=== PATIENT | female | born 1995 | race Hispanic/Latino ===

== ENCOUNTER 2018-06-05 15:00 | Outpatient (CLI) | payer MEDICAID ==
[2018-06-05] MEDS ORDERED: LACTATED RINGERS 500 ML IV ONE (17:45)
[2018-06-05 17:48] VITALS: BP 118/78
[2018-06-05 18:25] LABS: Bacteria,Urine 1+ /HPF (Negative); Bilirubin,Urine NEG (Negative); Blood,Urine NEG (Negative); Color,Urine Yellow (Yellow); Mucus,Urine 2+ /HPF; Protein,Urine <15 mg/dL mg/dL (Negative); Urobilinogen,Urine < 2.0 mg/dL (<2.0)
== END 2018-06-05 19:23 | disposition home or self-care (01) ==
LOC: TRG 15:00
PROVIDERS: ATTEND Obstetrics & Gynecology
DX: O47.03 False labor before 37 completed weeks of gestation, third trimester (principal); Z3A.35 35 weeks gestation of pregnancy
CPT/HCPCS: 59025; 81001; 96360; J7120

== ENCOUNTER 2018-07-08 13:05 | Outpatient (CLI) | payer MEDICAID | END 2018-07-08 14:30 | disposition home or self-care (01) | LOC: TRG 13:05 | CPT/HCPCS: 59025 ==

== ENCOUNTER 2018-07-11 18:30 | Outpatient (CLI) | payer MEDICAID ==
[2018-07-11 19:28] VITALS: BP 136/80
--- NOTE | 2018-07-11 20:48 | Ultrasound Report ---
PROCEDURE: US OB BPP WO NON-STRESS TECHNIQUE: Sonographic evaluation for breathing, movement, tone, and amniotic flui d volume was performed. HISTORY: NR NST COMPARISONS: None . FINDINGS: FETUS Amniotic fluid volume Normal-score 2. At least one vertical pocket >2 cm or more in vertical axis . breathing: Normal-score 2 . movement: Normal-score 2 . tone: Normal-score 2 . Score: 8 of 8 . heart rate is 135 bpm. IMPRESSION: Normal biophysical profile . This document is electronically signed by Juanita Murdock MD., July 11 2018 08:46:28 PM ET
== END 2018-07-11 19:54 | disposition home or self-care (01) ==
LOC: TRG 18:30
PROVIDERS: ATTEND Obstetrics & Gynecology
DX: O47.1 False labor at or after 37 completed weeks of gestation (principal); Z3A.40 40 weeks gestation of pregnancy
CPT/HCPCS: 59025; 76819

== ENCOUNTER 2018-07-13 16:20 | Inpatient (IN) | payer MEDICAID ==
[2018-07-13] MEDS ORDERED: MINERAL OIL PO PRN (17:26)
[2018-07-13] MEDS ORDERED: SUBLIMAZE IV PRN (17:26)
[2018-07-13] MEDS ORDERED: BRETHINE SUB-Q PRN (17:26)
[2018-07-13] MEDS ORDERED: XYLOCAINE 2% INFILTRATI ONE (17:26)
[2018-07-13] MEDS ORDERED: PITOCin/NS 20 UNIT/1000ML DRIP 20 UNITS/1,000 ML BAG IV SCH (18:00)
[2018-07-13] MEDS ORDERED: CERVIDIL VG ONE (18:00)
--- NOTE | 2018-07-13 19:21 | History and Physical Report ---
History of Present Illness Date of examination: 07/13/18 (3rd trip to Triage today Arrived by EMS with c/o bleeding) History of present illness: EDC Confirmation: 07/06/2018 Gestational Age: 20 3/7 weeks Past History : 2 Term Births: 0 Premature Births: 0 Living Children: 0 Para: 0 Mult. Births: 0 Prev : 0 Aborta: 1 Elect. Ab: 1 Spont. Ab: 0 Ectopics: 0 # 1 Delivery date: 12/2015 Weeks Gestation: 8 Delivery type: EAB Comments: Concieved on Accutane Past Medical History: IBS (2014) Depression Past Surgical History: Left Breast Reduction: (2011) D&C: (2015) Family History Summary: Other family member - Has No Family History of Colon Cancer - Entered On: 02/19/2018 Other family member - Has No Family History of Breast Cancer - Entered On: 02/19/2018 Other family member - Has Family History of Ovarian Cancer - Entered On: 02/19/2018 Other family member - Has Family History of Diabetes - Entered On: 02/19/2018 Other family member - Has Family History of CVA or Stroke - Entered On: 02/19/2018 Social History: Marital Status: engaged Children: 0 Occupation: unemployed Patient is single Risk Factors: Smoked Tobacco Use: Never smoker Drug use: no HIV high-risk behavior: low risk Alcohol use: yes Drinks per day: social Dietary Counseling: pn yes Past Medical History 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 of genital herpes: no Genetic History Congenital Heart Defect: Mom: no Dad: no Sanjeev Disease: Mom: no Dad: no Thalassemia Mom: no Dad: no Neural Tube Defect Mom: no Dad: no Down's Syndrome Mom: no Dad: no Andrea-Sachs Mom: no Dad: no Sickle Cell Disease/Trait Mom: no Dad: no Hemophilia Mom: no Dad: no Muscular Dystrophy Mom: no Dad: no Cystic Fibrosis Mom: no Dad: no [place] Chorea Mom: no Dad: no Mental Retardation Mom: no Dad: no Fragile X Mom: no Dad: no Other Genetic/Chromosomal Disorder Mom: no Dad: no Child w/other defect Mom: no Dad: no Current Allergies (reviewed today): * PNC (Critical) * MOXICILLIN (Critical) Past History - Obstetrical History Expected Date of Delivery: 07/06/18 Actual Gestation: 41 Week(s) 0 Day(s) : 2 Para: 0 Hx # Term Pregnancies: 0 Number of Pregnancies: 0 Spontaneous Abortions: 0 Induced : 1 Number of Living Children: 0 Medications and Allergies Allergies Allergy/AdvReac Type Severity Reaction Status Date / Time Penicillins AdvReac Severe Anaphylaxis Verified 07/08/18 13:18 amoxicillin AdvReac Anaphylaxis Verified 07/08/18 13:19 Home Medications Medication Instructions Recorded Confirmed Last Taken Type Pnv,Calcium 72/Iron/Folic Acid 1 tab PO DAILY 07/08/18 07/13/18 07/12/18 10:00 History [Pnv Plus Multivit Tab] Bupropion HCl [Wellbutrin XL] 300 mg PO DAILY 07/11/18 07/13/18 07/13/18 10:00 History Active Meds: Active Medications Ephedrine Sulfate (Ephedrine Sulfate) 10 mg IV Q2M PRN PRN Reason: Hypotension Fentanyl (Sublimaze) 100 mcg IV Q2H PRN PRN Reason: Labor Pain Lactated Ringer's (Lactated Ringers) 1,000 mls @ 125 mls/hr IV DIRECT IBETH Oxytocin/Sodium Chloride (Pitocin/Ns 20 Unit/1000ml Drip) 20 units in 1,000 mls @ 125 mls/hr IV DIRECT IBETH Mineral Oil (Mineral Oil) 30 ml PO QHS PRN PRN Reason: Constipation Ondansetron HCl (Zofran) 4 mg IV Q8H PRN PRN Reason: Nausea And Vomiting Terbutaline Sulfate (Brethine) 0.25 mg SUB-Q ONCE PRN PRN Reason: Hyperstimulation/Hypertonicity - Vital Signs Vital signs: Vital Signs Pulse BP 76 128/86 07/13/18 16:27 07/13/18 16:27 Temp Pulse Resp BP Pulse Ox 98.9 F 100 H 18 137/82 07/13/18 16:30 07/13/18 19:15 07/13/18 16:30 07/13/18 19:15 - Physical Exam Breasts: Positive: normal Cardiovascular: Regular rate, Normal S1, Normal S2 Lungs: Positive: Clear to auscultation Abdomen: Positive: normal appearance, soft, normal bowel sounds. Negative: distention, tenderness Genitourinary (Female): Positive: normal external genitalia Vulva: both: normal Vagina: Positive: normal moisture. Negative: discharge Cervix: Negative: lesion, discharge Uterus: Positive: normal size, normal contour Adnexa: both: normal Anus/Rectum: Positive: normal perianal skin, heme negative. Negative: rectal mass, hemorrhoids Extremities: Positive: edema Deep Tendon Reflex Grade: Normal +2 - Obstetrical FHR: category 1 Uterine Contraction Monitor Mode: External Cervical Dilatation: 1 (spotting noted on exam glove) Cervical Effacement Percentage: 50 station: -3 Uterine Contraction Pattern: Irregular Uterine Tone Measurement Phase: Resting Uterine Contraction Intensity: Mild Results All other labs normal. GBS Negative Current OB Labs Blood Type: O (11/27/2017) Rh Type: positive (11/27/2017) Rh Antibody Screen: negative (11/27/2017) Hgb: 11.1 (11/27/2017) Hct: 33.3 (11/27/2017) Platelets: 208 (11/27/2017) Rubella: non-immune (11/27/2017) RPR: nonreactive (11/27/2017) Hep B Surface Antigen: negative (11/27/2017) HIV: negative (11/27/2017) Assessment and Plan 23yo @ 41 weeks vaginal spotting Admitted to start IOL which was scheduled for Sunday. GBS negative Orders in EMR.
[2018-07-13] MEDS: LACTATED RINGERS 1,000 ML IV SCH ×3 (20:30→23:06)
[2018-07-13 21:09] LABS: Hematocrit 32.8 % (30.3-42.9); Mean Corpuscular HGB Conc 34 % (30-34); Mean Corpuscular Volume 80 fl (79-97); Platelet Count 204 K/mm3 (140-440); Red Blood Count 4.11 M/mm3 (3.65-5.03)
[2018-07-13 21:45] LABS: Bilirubin,Urine NEG (Negative); Blood,Urine LG (Negative); Color,Urine Yellow (Yellow); Mucus,Urine 3+ /HPF; Urobilinogen,Urine < 2.0 mg/dL (<2.0)
[2018-07-13 21:57] LABS: Amphetamine Screen,Urine PRESUMPTIVE NEGATIVE; Benzodiazepines Screen,Urine PRESUMPTIVE NEGATIVE; Cannabinoid Screen,Urine PRESUMPTIVE NEGATIVE; Cocaine Screen,Urine PRESUMPTIVE NEGATIVE; Methadone Screen,Urine PRESUMPTIVE NEGATIVE; Opiate Screen,Urine PRESUMPTIVE NEGATIVE
[2018-07-13] MEDS ORDERED: NARCAN 2 MG/2 ML IV PRN (21:57)
[2018-07-13] MEDS ORDERED: MARCAINE 0.25% INFILTRATI ONE (22:03)
[2018-07-13] MEDS ORDERED: PITOCin/NS 30 UNIT/500ML 30 UNITS/500 ML BAG IV SCH (23:00)
[2018-07-13] MEDS: fentaNYL-BUPIV 2 MCG/ML-0.125% 200 MCG/100 ML BAG EPIDURAL SCH (23:03)
[2018-07-13] MEDS: ZOFRAN IV PRN (23:24)
--- NOTE | 2018-07-13 23:24 | Anesthesia Consultation ---
Anesthesia Consult and Med Hx - Airway Anesthetic Teeth Evaluation: Good ROM Head & Neck: Adequate Mental/Hyoid Distance: Adequate Mallampati Class: Class I Intubation Access Assessment: Good - Pulmonary Exam CTA: Yes - Cardiac Exam Cardiac Exam: RRR - Pre-Operative Health Status ASA Pre-Surgery Classification: ASA2 Proposed Anesthetic Plan: Epidural - Pulmonary Hx Smoking: No Hx Asthma: No Hx Respiratory Symptoms: No SOB: No COPD: No Home Oxygen Therapy: No Hx Pneumonia: No Hx Sleep Apnea: No - Cardiovascular System Hx Hypertension: No - Central Nervous System Hx Seizures: No Hx Psychiatric Problems: Yes (depression, anxiety) - Endocrine Hx Renal Disease: No Hx End Stage Renal Disease: No Hx Hypothyroidism: No Hx Hyperthyroidism: No - Hematic Hx Anemia: No Hx Sickle Cell Disease: No - Other Systems Hx Alcohol Use: No
--- NOTE | 2018-07-13 23:25 | Anesthesia Day of Surgery ---
Anesthesia Day of Surgery - Day of Surgery Patient Examined: Yes Patient H&P Reviewed: Yes Patient is NPO: Yes Beta Blockers: No Cardiac Clearance: No Pulmonary Clearance: No Kasi's Test: N/A
[2018-07-14] MEDS: fentaNYL-BUPIV 2 MCG/ML-0.125% 200 MCG/100 ML BAG EPIDURAL SCH (06:25)
[2018-07-14] MEDS: LACTATED RINGERS 1,000 ML IV SCH (06:26)
[2018-07-14] MEDS: ZOFRAN IV PRN (06:57)
[2018-07-14] MEDS ORDERED: XYLOCAINE MPF 2% ONE ×4 (08:54→12:30)
[2018-07-14] MEDS ORDERED: PEPCID IV ONE ×3 (09:37→11:00)
--- NOTE | 2018-07-14 10:23 | Progress Note ---
Assessment and Plan Pt comfortable with epidural Pitocin per protocol for IOL Pt and family very aware of possible operative intervention. Discussed risk to include but not limited to: excessive bleeding, damage to other organs, need for c/s with future pregnancies All questions addressed. Subjective - Subjective Date of service: 07/14/18 (Late Entry from 0800) Interval history: EDC Confirmation: 07/06/2018 Gestational Age: 20 3/7 weeks Past History : 2 Term Births: 0 Premature Births: 0 Living Children: 0 Para: 0 Mult. Births: 0 Prev : 0 Aborta: 1 Elect. Ab: 1 Spont. Ab: 0 Ectopics: 0 # 1 Delivery date: 12/2015 Weeks Gestation: 8 Delivery type: EAB Comments: Concieved on Accutane Past Medical History: IBS (2014) Depression Past Surgical History: Left Breast Reduction: (2011) D&C: (2015) Family History Summary: Other family member - Has No Family History of Colon Cancer - Entered On: 02/19/2018 Other family member - Has No Family History of Breast Cancer - Entered On: 02/19/2018 Other family member - Has Family History of Ovarian Cancer - Entered On: 02/19/2018 Other family member - Has Family History of Diabetes - Entered On: 02/19/2018 Other family member - Has Family History of CVA or Stroke - Entered On: 02/19/2018 Social History: Marital Status: engaged Children: 0 Occupation: unemployed Patient is single Risk Factors: Smoked Tobacco Use: Never smoker Drug use: no HIV high-risk behavior: low risk Alcohol use: yes Drinks per day: social Dietary Counseling: pn yes Past Medical History 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 of genital herpes: no Genetic History Congenital Heart Defect: Mom: no Dad: no Sanjeev Disease: Mom: no Dad: no Thalassemia Mom: no Dad: no Neural Tube Defect Mom: no Dad: no Down's Syndrome Mom: no Dad: no Andrea-Sachs Mom: no Dad: no Sickle Cell Disease/Trait Mom: no Dad: no Hemophilia Mom: no Dad: no Muscular Dystrophy Mom: no Dad: no Cystic Fibrosis Mom: no Dad: no [place] Chorea Mom: no Dad: no Mental Retardation Mom: no Dad: no Fragile X Mom: no Dad: no Other Genetic/Chromosomal Disorder Mom: no Dad: no Child w/other defect Mom: no Dad: no Current Allergies (reviewed today): * PNC (Critical) * MOXICILLIN (Critical) Patient reports: movement normal, other (pain and pressure despite epidural) Objective - Vital Signs Vital Signs: Vital Signs - 12hr 07/13/18 07/13/18 07/13/18 22:25 22:27 22:28 Temperature Pulse Rate 91 H 90 94 H Respiratory Rate Blood Pressure 118/66 123/73 O2 Sat by Pulse 100 Oximetry 07/13/18 07/13/18 07/13/18 22:31 22:32 22:34 Temperature Pulse Rate 84 100 H 83 Respiratory Rate Blood Pressure 126/72 128/73 O2 Sat by Pulse 100 Oximetry 07/13/18 07/13/18 07/13/18 22:37 22:40 22:42 Temperature Pulse Rate 90 90 89 Respiratory Rate Blood Pressure 130/70 119/70 O2 Sat by Pulse 99 100 Oximetry 07/13/18 07/13/18 07/13/18 22:43 22:46 22:47 Temperature Pulse Rate 86 90 94 H Respiratory Rate Blood Pressure 118/69 124/71 O2 Sat by Pulse 100 Oximetry 07/13/18 07/13/18 07/13/18 22:49 22:52 22:57 Temperature Pulse Rate 93 H 89 94 H Respiratory Rate Blood Pressure 117/66 116/67 O2 Sat by Pulse 100 100 Oximetry 07/13/18 07/13/18 07/13/18 23:02 23:07 23:08 Temperature Pulse Rate 83 85 83 Respiratory Rate Blood Pressure 117/68 O2 Sat by Pulse 100 100 Oximetry 07/13/18 07/13/18 07/13/18 23:12 23:18 23:23 Temperature Pulse Rate 103 H 87 88 Respiratory Rate Blood Pressure O2 Sat by Pulse 99 100 100 Oximetry 07/13/18 07/13/18 07/13/18 23:25 23:28 23:30 Temperature Pulse Rate 82 75 Respiratory 20 Rate Blood Pressure 115/68 115/68 O2 Sat by Pulse 100 Oximetry 07/13/18 07/13/1819 23:32 23:37 23:38 Temperature Pulse Rate 86 86 89 Respiratory Rate Blood Pressure 113/68 O2 Sat by Pulse 100 100 Oximetry 07/13/18 07/13/18 07/13/18 23:45 23:50 23:52 Temperature Pulse Rate 89 87 92 H Respiratory Rate Blood Pressure 104/59 O2 Sat by Pulse 99 100 Oximetry 07/13/18 07/13/18 07/14/18 23:55 23:59 00:04 Temperature Pulse Rate 84 86 109 H Respiratory Rate Blood Pressure O2 Sat by Pulse 100 100 100 Oximetry 07/14/18 07/14/18 07/14/18 00:08 00:09 00:14 Temperature Pulse Rate 99 H 112 H 82 Respiratory Rate Blood Pressure 105/56 O2 Sat by Pulse 100 99 Oximetry 07/14/18 07/14/18 07/14/18 00:19 00:23 00:24 Temperature Pulse Rate 81 83 96 H Respiratory Rate Blood Pressure 122/69 O2 Sat by Pulse 99 100 Oximetry 07/14/18 07/14/18 07/14/18 00:29 00:34 00:39 Temperature Pulse Rate 82 86 86 Respiratory Rate Blood Pressure O2 Sat by Pulse 100 99 100 Oximetry 07/14/18 07/14/18 07/14/18 00:44 00:49 00:54 Temperature Pulse Rate 86 84 97 H Respiratory Rate Blood Pressure 124/66 O2 Sat by Pulse 100 99 98 Oximetry 07/14/18 07/14/18 07/14/18 00:59 01:04 01:09 Temperature Pulse Rate 86 86 86 Respiratory Rate Blood Pressure O2 Sat by Pulse 100 99 100 Oximetry 07/14/18 07/14/18 07/14/18 01:14 01:19 01:24 Temperature Pulse Rate 89 94 H 83 Respiratory Rate Blood Pressure 117/73 O2 Sat by Pulse 99 99 98 Oximetry 07/14/18 07/14/18 07/14/18 01:29 01:34 01:39 Temperature Pulse Rate 92 H 91 H 85 Respiratory Rate Blood Pressure O2 Sat by Pulse 100 99 99 Oximetry 07/14/18 07/14/18 07/14/18 01:44 01:49 01:54 Temperature Pulse Rate 90 81 85 Respiratory Rate Blood Pressure 108/70 O2 Sat by Pulse 99 98 100 Oximetry 07/14/18 07/14/18 07/14/18 01:59 02:04 02:09 Temperature Pulse Rate 89 88 84 Respiratory Rate Blood Pressure O2 Sat by Pulse 98 99 96 Oximetry 07/14/18 07/14/18 07/14/18 02:14 02:19 02:23 Temperature Pulse Rate 99 H 82 88 Respiratory Rate Blood Pressure 107/67 O2 Sat by Pulse 97 97 Oximetry 07/14/18 07/14/18 07/14/18 02:24 02:29 02:34 Temperature Pulse Rate 83 86 85 Respiratory Rate Blood Pressure O2 Sat by Pulse 98 98 97 Oximetry 07/14/18 07/14/18 07/14/18 02:39 02:44 02:49 Temperature Pulse Rate 80 92 H 80 Respiratory Rate Blood Pressure O2 Sat by Pulse 98 97 98 Oximetry 07/14/18 07/14/18 07/14/18 02:50 02:53 02:58 Temperature Pulse Rate 86 80 62 Respiratory Rate Blood Pressure O2 Sat by Pulse 94 98 97 Oximetry 07/14/18 07/14/18 07/14/18 03:03 03:08 03:13 Temperature Pulse Rate 80 82 84 Respiratory Rate Blood Pressure O2 Sat by Pulse 97 99 98 Oximetry 07/14/18 07/14/18 07/14/18 03:18 03:23 03:28 Temperature Pulse Rate 87 85 72 Respiratory Rate Blood Pressure O2 Sat by Pulse 99 98 97 Oximetry 07/14/18 07/14/18 07/14/18 03:33 03:38 03:43 Temperature Pulse Rate 71 85 80 Respiratory Rate Blood Pressure O2 Sat by Pulse 97 97 97 Oximetry 07/14/18 07/14/18 07/14/18 03:48 03:53 03:58 Temperature Pulse Rate 76 74 100 H Respiratory Rate Blood Pressure O2 Sat by Pulse 97 97 98 Oximetry 07/14/18 07/14/18 07/14/18 04:03 04:08 04:13 Temperature Pulse Rate 77 78 75 Respiratory Rate Blood Pressure O2 Sat by Pulse 97 96 97 Oximetry 07/14/18 07/14/18 07/14/18 04:18 04:23 04:28 Temperature Pulse Rate 101 H 64 74 Respiratory Rate Blood Pressure O2 Sat by Pulse 99 96 98 Oximetry 07/14/18 07/14/18 07/14/18 04:33 04:38 04:43 Temperature Pulse Rate 74 72 102 H Respiratory Rate Blood Pressure O2 Sat by Pulse 97 96 98 Oximetry 07/14/18 07/14/18 07/14/18 04:48 04:53 04:58 Temperature Pulse Rate 74 83 75 Respiratory Rate Blood Pressure O2 Sat by Pulse 96 97 97 Oximetry 07/14/18 07/14/18 07/14/18 05:03 05:08 05:10 Temperature Pulse Rate 74 77 77 Respiratory Rate Blood Pressure O2 Sat by Pulse 97 96 94 Oximetry 07/14/18 07/14/18 07/14/18 05:13 05:18 05:23 Temperature Pulse Rate 75 70 69 Respiratory Rate Blood Pressure O2 Sat by Pulse 95 96 97 Oximetry 07/14/18 07/14/18 07/14/18 05:28 05:33 05:38 Temperature Pulse Rate 87 73 80 Respiratory Rate Blood Pressure O2 Sat by Pulse 99 99 99 Oximetry 07/14/18 07/14/18 07/14/18 05:43 05:48 05:53 Temperature Pulse Rate 91 H 60 82 Respiratory Rate Blood Pressure O2 Sat by Pulse 99 98 100 Oximetry 07/14/18 07/14/18 07/14/18 05:58 06:03 06:08 Temperature Pulse Rate 83 85 86 Respiratory Rate Blood Pressure O2 Sat by Pulse 100 99 98 Oximetry 07/14/18 07/14/18 07/14/18 06:13 06:18 06:29 Temperature Pulse Rate 85 101 H 85 Respiratory Rate Blood Pressure 118/73 O2 Sat by Pulse 99 98 Oximetry 07/14/18 07/14/18 07/14/18 06:32 06:37 06:42 Temperature Pulse Rate 81 80 97 H Respiratory Rate Blood Pressure O2 Sat by Pulse 98 97 97 Oximetry 07/14/18 07/14/18 07/14/18 06:47 06:52 06:57 Temperature Pulse Rate 101 H 77 75 Respiratory Rate Blood Pressure O2 Sat by Pulse 98 97 97 Oximetry 07/14/18 07/14/18 07/14/18 07:00 07:02 07:07 Temperature Pulse Rate 65 73 93 H Respiratory Rate Blood Pressure 113/60 O2 Sat by Pulse 97 98 Oximetry 07/14/18 07/14/18 07/14/18 07:12 07:17 07:22 Temperature Pulse Rate 77 75 97 H Respiratory Rate Blood Pressure O2 Sat by Pulse 97 98 97 Oximetry 07/14/18 07/14/18 07/14/18 07:27 07:30 07:32 Temperature Pulse Rate 72 70 76 Respiratory Rate Blood Pressure 110/61 O2 Sat by Pulse 96 97 Oximetry 07/14/18 07/14/18 07/14/18 07:50 09:03 09:08 Temperature 98.6 F Pulse Rate 68 71 Respiratory 20 Rate Blood Pressure 108/66 O2 Sat by Pulse 95 98 Oximetry 07/14/18 07/14/18 07/14/18 09:13 09:18 09:23 Temperature Pulse Rate 90 70 69 Respiratory Rate Blood Pressure O2 Sat by Pulse 97 99 99 Oximetry 07/14/18 07/14/18 07/14/18 09:28 09:33 09:38 Temperature Pulse Rate 72 80 80 Respiratory Rate Blood Pressure O2 Sat by Pulse 100 100 100 Oximetry 07/14/18 07/14/18 07/14/18 09:43 09:48 09:53 Temperature Pulse Rate 78 69 82 Respiratory Rate Blood Pressure O2 Sat by Pulse 100 100 98 Oximetry 07/14/18 07/14/18 07/14/18 09:58 10:03 10:08 Temperature Pulse Rate 84 82 70 Respiratory Rate Blood Pressure O2 Sat by Pulse 99 100 100 Oximetry 07/14/18 07/14/18 10:13 10:18 Temperature Pulse Rate 72 91 H Respiratory Rate Blood Pressure O2 Sat by Pulse 99 99 Oximetry - Exam Breasts: deferred Cardiovascular: Regular rate Lungs: Normal air movement Abdomen: Present: normal appearance, soft. Absent: distention, tenderness Uterus: Present: normal FHR: auscultation normal Uterine Contraction Monitor Mode: Internal Cervical Dilatation: 5 (ROM bloody fluid) Cervical Effacement Percentage: 90 (internals placed) station: -2 Uterine Contraction Pattern: Regular Uterine Tone Measurement Phase: Resting Uterine Contraction Intensity: Moderate Extremities: edema Deep Tendon Reflex Grade: Normal +2 - Labs Labs: Abnormal Labs 07/13/18 07/13/18 20:30 Unknown WBC 12.2 H MCH 27 L RDW 16.0 H Urine WBC (Auto) 8.0 H Laboratory Results - last 24 hr 07/13/18 07/13/18 07/13/18 20:30 20:30 Unknown WBC 12.2 H RBC 4.11 Hgb 11.0 Hct 32.8 MCV 80 MCH 27 L MCHC 34 RDW 16.0 H Plt Count 204 Urine Color Yellow Urine Turbidity Clear Urine pH 5.0 Ur Specific [place] 1.025 Urine Protein 100 mg/dl Urine Glucose (UA) Neg Urine Ketones 80 Urine Blood Lg Urine Nitrite Neg Urine Bilirubin Neg Urine Urobilinogen < 2.0 Ur Leukocyte Esterase Tr Urine WBC (Auto) 8.0 H Urine RBC (Auto) 1.0 U Epithel Cells (Auto) 5.0 Urine Mucus 3+ Urine Opiates Screen Urine Methadone Screen Ur Barbiturates Screen Ur Phencyclidine Scrn Ur Amphetamines Screen U Benzodiazepines Scrn Urine Cocaine Screen U Marijuana (THC) Screen Drugs of Abuse Note Blood Type O POSITIVE Antibody Screen Negative 07/13/18 Unknown WBC RBC Hgb Hct MCV MCH MCHC RDW Plt Count Urine Color Urine Turbidity Urine pH Ur Specific [place] Urine Protein Urine Glucose (UA) Urine Ketones Urine Blood Urine Nitrite Urine Bilirubin Urine Urobilinogen Ur Leukocyte Esterase Urine WBC (Auto) Urine RBC (Auto) U Epithel Cells (Auto) Urine Mucus Urine Opiates Screen Presumptive negative Urine Methadone Screen Presumptive negative Ur Barbiturates Screen Presumptive negative Ur Phencyclidine Scrn Presumptive negative Ur Amphetamines Screen Presumptive negative U Benzodiazepines Scrn Presumptive negative Urine Cocaine Screen Presumptive negative U Marijuana (THC) Screen Presumptive negative Drugs of Abuse Note Disclamer Blood Type Antibody Screen
--- NOTE | 2018-07-14 10:24 | Event Note ---
Date: 07/14/18 (pt desires to move forward with c/s) No cervical chg sine this AM @ 0800 despite adequate labor. SVE 5,90,-2 Increased vaginal bleeding noted. Spoke with C/S called Orders placed
[2018-07-14] MEDS ORDERED: GENTAMICIN 160 MG in NACL 0.9% 100 ML IV SCH (11:00)
[2018-07-14] MEDS ORDERED: LACTATED RINGERS 1,000 ML IV SCH (11:00)
[2018-07-14] MEDS ORDERED: BICITRA PO ONE (11:00)
[2018-07-14] MEDS ORDERED: PITOCin/NS 20 UNIT/1000ML DRIP 20 UNITS/1,000 ML BAG IV SCH ×2 (11:00→14:10)
[2018-07-14] MEDS ORDERED: CLEOCIN 600 MG/50 mL 600 MG/50 ML BAG IV NR (11:00)
[2018-07-14] MEDS ORDERED: REGLAN IV ONE (11:00)
--- NOTE | 2018-07-14 11:10 | Event Note ---
Date: 07/14/18 Patient informed the risks of the surgery include bleeding possibly bleeding heavy enough to require blood transfusion, infection possible damage to bowel bladder ureter. All questions answered. Patient agrees to proceed
[2018-07-14] MEDS ORDERED: WATER FOR IRRIG STERILE IR ONE (11:34)
[2018-07-14] MEDS ORDERED: NACL 0.9% IR ONE (11:34)
[2018-07-14] MEDS ORDERED: ASTRAMORPH PF 10MG/10ML ONE (11:51)
--- NOTE | 2018-07-14 12:26 | Operative Report ---
Operative Report Operative Report: Date of procedure: 07/14/2018 Pre-operative diagnosis: Uterine at 41 weeks and 1 day, failed inducti on, suspected macrosomia, failure of dilatation and descent and body mass index greater than 40 Post-operative diagnosis: Same Procedure name(s):. Primary Low-transverse section Surgeon: Caio Quinteros MD Certified Hyperbaric Technologist: Maryjo Lerner, certified nurse general lithographic worker Anesthesia: Epidural EBL: 800 mL Complications: None Findings: Normal uterus tubes and ovaries bilaterally. Female infant weight 9 lbs. 15 oz. 8 at 1 minute 9 at 5 minutes Specimen(s): None Procedure: The patient was brought to the operating room. Epidural was dose without any complications. She was then placed in left lateral tilt. Prepped and draped in the usual sterile manner. After testing for adequate anesthesia level, a Pfannenstiel incision was made. This incision was taken down to the fascia. The fascia was then nicked in the midline. This incision was extended out laterally with Chung scissors. The fascia was then sharply and bluntly from the underlying rectus muscles. The rectus muscles were bluntly and sharply . The peritoneum was then entered with the scarfer operator's fingers. This incision was spread vertically with care not to damage the bladder below. The bladder blade was placed. The bladder flap was then formed sharply and bluntly with Metzenbaum scissors. A transverse incision was made in lower uterine segment. This incision was extended laterally with the operators fingers. The amniotic sac was then entered bluntly with the scarfer operator's fingers. The was delivered from the vertex position. Bulb suction on the mother's abdomen. Cord was double clamped and cut. The was then passed to the nursery personnel who were in attendance. The above scores were given by the nursery personnel. The placenta was then bluntly removed. The uterus was then externalized and wiped clean the remaining products. The uterine incision was closed in layers. The first incision was closed in a locking manner using 0 Vicryl. This was followed by imbricating stitch also with 0 Vicryl. This closure was hemostatic. The bladder flap was copiously irrigated and found to be hemostatic. The pelvis was copiously irrigated and found to be hemostatic. The uterus was then placed back to the patient's abdomen. The retractors were removed. The rectus muscles were inspected and found to be hemostatic. The fascia was then closed in a running manner using 0 Vicryl. This incision was hemostatic irrigation Bovie. The skin was reapproximated with 4-0 Vicryl subcuticularly. The patient tolerated procedure well. Her urine was clear. The was admitted to the well baby nursery. The patient was accompanied to recovery room in good condition. Instrument count correct times 3.
[2018-07-14] MEDS ORDERED: TORADOL IV PRN (12:46)
[2018-07-14] MEDS ORDERED: DILAUDID IM PRN (12:46)
[2018-07-14] MEDS: DILAUDID IV PRN ×2 (12:59→13:18)
[2018-07-14] MEDS ORDERED: NARCAN 0.4 MG/1 ML IV PRN (14:10)
[2018-07-14] MEDS ORDERED: CLEOCIN 600 MG/50 mL 600 MG/50 ML BAG IV SCH ×2 (14:10→18:30)
[2018-07-14] MEDS ORDERED: TORADOL IV SCH (14:10)
[2018-07-14] MEDS ORDERED: LANSINOH TP PRN (14:10)
[2018-07-14] MEDS ORDERED: SODIUM CHLORIDE FLUSH SYRINGE 10 ML IV NR (14:10)
[2018-07-14] MEDS ORDERED: ANUCORT-HC PR PRN (14:10)
[2018-07-14] MEDS ORDERED: MILK OF MAGNESIA PO PRN (14:10)
[2018-07-14] MEDS ORDERED: TUCKS PAD TP PRN (14:10)
[2018-07-14] MEDS: D5LR 1,000 ML IV SCH (19:21)
[2018-07-14] MEDS: TORADOL IV SCH (19:46)
[2018-07-15] MEDS: NORCO 5/325 PO PRN ×4 (00:41→21:18)
[2018-07-15] MEDS ORDERED: CLEOCIN 600 MG/50 mL 600 MG/50 ML BAG IV SCH (02:00)
[2018-07-15] MEDS: TORADOL IV SCH (02:03)
[2018-07-15 02:15] LABS: Hematocrit 23.7 % (30.3-42.9); Hemoglobin 7.8 gm/dl (10.1-14.3)
[2018-07-15] MEDS: D5LR 1,000 ML IV SCH (02:22)
[2018-07-15] MEDS ORDERED: BOOSTRIX IM ONE (06:00)
--- NOTE | 2018-07-15 08:11 | Progress Note ---
Assessment and Plan POD 1 Patient resting in bed. FOC at bedside holding . Patient reports minimal bleeding. Fundus firm, ML, U/1, no blood noted on peripad. Patient reports pain is "intense" and describes gas pains and some incisional pain. Patient due for Toradol at 0800. Encouraged ambulation for gas pain. Unable to assess incision, dressing in place. Instructed patient to shower today and remove dressing at that time. Dressing is clean, dry, intact at present. Patient reports infant having difficulty latching, she is supplementing with formula as needed. Encouraged to continue putting infant to breast to nurse and to increase water intake. DWP H&H results post delivery. Iron started as inpatient. Patient denies any dizziness or feeling faint with position changes or ambulations. VSSAF. Continue post-op POC. Subjective - Subjective Date of service: 07/15/18 Principal diagnosis: POD1 s/p primary c/s for failed induction Patient reports: appetite normal, voiding normally, ambulating normally [place]: doing well Objective - Vital Signs Latest vital signs: Vital Signs Temp Pulse Resp BP BP Pulse Ox 07/15/18 04:20 98.0 F 74 20 120/63 98 07/15/18 02:03 20 07/15/18 00:41 18 07/15/18 00:00 98.2 F 83 18 96/53 90 07/14/18 20:05 98.2 F 80 18 114/70 97 07/14/18 19:46 20 07/14/18 16:08 98.1 F 76 20 115/53 96 07/14/18 14:05 98.8 F 73 18 114/55 07/14/18 13:30 98.9 F 76 16 124/78 97 07/14/18 13:15 73 18 118/69 97 07/14/18 13:05 71 15 121/66 96 07/14/18 13:00 72 13 117/61 98 07/14/18 12:55 67 13 120/69 98 07/14/18 12:50 75 14 124/66 99 07/14/18 12:45 71 15 124/73 98 07/14/18 12:40 75 14 120/68 99 07/14/18 12:35 75 18 124/57 100 07/14/18 12:30 98.4 F 75 16 120/69 100 07/14/18 10:43 79 99 03/03/19 10:38 87 99 07/14/18 10:33 88 100 07/14/18 10:28 74 99 07/14/18 10:23 98 H 99 07/14/18 10:18 91 H 99 07/14/18 10:13 72 99 07/14/18 10:08 70 100 07/14/18 10:03 82 100 07/14/18 09:58 84 99 07/14/18 09:53 82 98 07/14/18 09:48 69 100 07/14/18 09:43 78 100 07/14/18 09:38 80 100 07/14/18 09:33 80 100 07/14/18 09:28 72 100 07/14/18 09:23 69 99 07/14/18 09:18 70 99 07/14/18 09:13 90 97 07/14/18 09:08 71 98 07/14/18 09:03 68 108/66 95 Intake and Output 07/14/18 07/15/18 07/15/18 23:59 07:59 15:59 Intake Total 480 1477.083 Output Total 1000 Balance 480 477.083 Intake: IV 877.083 D5lr 1,000 ml @ 125 mls/ 877.083 hr IV DIRECT IBETH Rx#: [id number] Oral 600 Intake, Free Water 480 Output: Urine 1000 Indwelling Catheter 600 Void 400 Other: Total, Intake Amount 360 Total, Output Amount 400 - Exam Breasts: Present: normal Cardiovascular: Present: Regular rate, Normal S1, Normal S2 Lungs: Present: Clear to auscultation Abdomen: Present: normal appearance, soft Uterus: Present: normal, firm Extremities: Present: normal Incision: Present: dressed (C/D/I) - Labs Labs: Abnormal lab results 07/15/18 Range/Units 01:12 Hgb 7.8 L D (10.1-14.3) gm/dl Hct 23.7 L D (30.3-42.9) %
[2018-07-15] MEDS: IBUPROFEN PO PRN ×3 (08:38→23:26)
[2018-07-15] MEDS: PRENATAL VITAMIN PO SCH (09:51)
[2018-07-15] MEDS: MYLICON PO PRN ×2 (09:51→21:20)
[2018-07-15] MEDS: FEOSOL PO SCH ×2 (09:51→22:09)
[2018-07-15] MEDS ORDERED: FEOSOL PO SCH ×2 (10:00)
[2018-07-16] MEDS ORDERED: NORCO 5/325 PO PRN (00:51)
[2018-07-16] MEDS: NORCO 5/325 PO PRN ×4 (01:34→17:06)
--- NOTE | 2018-07-16 07:48 | Discharge Summary ---
Providers - Providers Date of Admission: 07/13/18 19:17 Date of discharge: 07/16/18 (desires d/c home today) Attending physician: ROCÍO NEWMAN 07/14/18 14:10 Consult to Hog Ribber [CONS] Routine Reason For Exam: Primary care physician: XI ROBERTS Hospitalization Reason for admission: early labor Condition: Good Pertinent studies: postop H&H 7.8/23.7, anemia from acute blood loss, asymptomatic Procedures: c/s Hospital course: uncomplicated c/s and course Disposition: DC-01 TO HOME OR SELFCARE - Discharge Diagnoses (1) delivery delivered Status: Acute Core Measure Documentation - Palliative Care Palliative Care/ Comfort Measures: Not Applicable - Core Measures Any of the following diagnoses?: none Exam - Constitutional Vitals: Temp Pulse Resp BP Pulse Ox 97.7 F 87 18 130/80 98 07/16/18 02:06 07/16/18 02:06 07/16/18 02:06 07/16/18 02:06 07/16/18 02:06 General appearance: Present: no acute distress, well-nourished - EENT Eyes: Present: PERRL ENT: hearing intact, clear oral mucosa - Neck Neck: Present: supple, normal ROM - Respiratory Respiratory effort: normal Respiratory: bilateral: CTA - Cardiovascular Heart Sounds: Present: S1 & S2. Absent: rub, click - Extremities Extremities: pulses symmetrical, No edema Peripheral Pulses: within normal limits - Abdominal General gastrointestinal: Present: soft, non-tender, non-distended, normal bowel sounds Female genitourinary: Present: normal - Integumentary Integumentary: Present: clear, warm, dry - Musculoskeletal Musculoskeletal: gait normal, strength equal bilaterally - Psychiatric Psychiatric: appropriate mood/affect, intact judgment & insight - Neurologic Neurologic: CNII-XII intact, moves all extremities - Additional findings Additional findings: fundus firm, lochia scant, incision D&I, breast feeding Plan Activity: advance as tolerated Diet: regular Wound: open to air, keep clean and dry Follow up with: XI ROBERTS MD [Primary Care Provider] - 7 Days (Congratulations! Please call [phone] to schedule your incision check in 1 week. Call for any questions or concerns. ) Prescriptions: Ferrous Sulfate [Feosol 325 MG tab] 325 mg PO BID #60 tablet Ibuprofen [Motrin 800 MG tab] 800 mg PO Q6H PRN #30 tablet PRN Reason: Pain oxyCODONE /ACETAMINOPHEN [Percocet 5/325 mg] 1 - 2 tab PO Q4H PRN #20 tablet PRN Reason: Pain, Moderate
[2018-07-16] MEDS: FEOSOL PO SCH (10:11)
[2018-07-16] MEDS: PRENATAL VITAMIN PO SCH (10:14)
[2018-07-16 16:44] VITALS: BP 123/68
[2018-07-16] MEDS ORDERED: M-M-R II VACCINE SUB-Q ONE (17:49)
== END 2018-07-16 19:00 | disposition home or self-care (01) | DRG 765 ==
LOC: TRG 16:20 → LD 19:17 → OB 07-14 14:12
PROVIDERS: ADMIT Obstetrics & Gynecology; ATTEND Obstetrics & Gynecology
PROC: 3E033VJ Introduction of Other Hormone into Peripheral Vein, Percutaneous Approach (ICD-10-PCS; 2018-07-13)
PROC: 10D00Z1 Extraction of Products of Conception, Low, Open Approach (ICD-10-PCS; principal; 2018-07-14)
PROC: 3E0234Z Introduction of Serum, Toxoid and Vaccine into Muscle, Percutaneous Approach (ICD-10-PCS; 2018-07-15)
DX: O99.344 Other mental disorders complicating childbirth (principal); D62 Acute posthemorrhagic anemia; O62.0 Primary inadequate contractions; O61.9 Failed induction of labor, unspecified; O90.81 Anemia of the puerperium; Z3A.41 41 weeks gestation of pregnancy; Z37.0 Single live birth; F41.9 Anxiety disorder, unspecified; Z23 Encounter for immunization
CPT/HCPCS: 36415; 59025; 80307; 81001; 85014; 85018; 85027; 86592; 86850; 86900; 86901; 90471; 90715; 96372; G0378; A6250; J1170; J1580; J1885; J2270; J2274; J2405; J2590; J2765; J7120; J7121